=== PATIENT | male | born 1955 | race Caucasian/White ===

== ENCOUNTER 2016-11-20 11:28 | Inpatient (IN) | payer OTHER ==
[~2016-11-20] VITALS: Ht 170.2 cm; Wt 60.0 kg
[~2016-11-20 11:28] MED LIST: ETOMIDATE 20 MG INJ ONE
[2016-11-20] MEDS ORDERED: SUCCINYLCHOLINE CHLORIDE 100 MG/5 ML SYG IV STA (11:33)
[2016-11-20] MEDS ORDERED: ETOMIDATE 20 MG INJ IV STA (11:33)
[2016-11-20] MEDS ORDERED: PROPOFOL 100 ML IV STA (11:33)
[2016-11-20 11:45] VITALS: Ht 170.2 cm; Wt 60.0 kg
[2016-11-20 11:58] LABS: ABNORMAL IP MESSAGE 1; BASOPHIL # 0.1 10^3/ul (0.0-0.1); BASOPHILS % 0.5 % (0.0-2.0); EOSINOPHILS # 0.7 10^3/ul (0.0-0.5); HEMATOCRIT 36.4 % (42.0-52.0); HEMOGLOBIN 11.4 g/dl (14.0-18.0); LYMPHOCYTES # 5.8 10^3/ul (0.8-2.9); MEAN CORPUSCULAR HEMOGLOBIN 29.1 pg (29.0-33.0); MEAN CORPUSCULAR HGB CONC 31.3 g/dl (32.0-37.0); MEAN CORPUSCULAR VOLUME 92.9 fl (82.0-101.0); MEAN PLATELET VOLUME 10.9 fl (7.4-10.4); MONOCYTE # 1.2 10^3/ul (0.3-0.9); MONOCYTES % 6.9 % (0.0-11.0); NEUTROPHIL # 9.5 10^3/ul (1.6-7.5); NEUTROPHILS % 54.3 % (39.0-77.0); PLATELET COUNT 237 10^3/UL (140-415); POSITIVE DIFF @See below; RED BLOOD COUNT 3.92 10^6/ul (4.70-6.10); RED CELL DISTRIBUTION WIDTH 14.6 % (11.5-14.5); WHITE BLOOD COUNT 17.5 10^3/ul (4.8-10.8)
[2016-11-20] MEDS ORDERED: SOD CHLORIDE 0.9% 100 ML ONE (11:58)
[2016-11-20] MEDS ORDERED: IOHEXOL 300MG/ML 150 ML BTL ONE (11:58)
[2016-11-20] MEDS ORDERED: HYDROmorphONE 1 MG/ML SYG IV ONE (12:00)
[2016-11-20 12:15] LABS: ALBUMIN 3.2 g/dl (3.3-4.9); ALBUMIN/GLOBULIN RATIO 0.94; BILIRUBIN,INDIRECT 0.2 mg/dl (0-1.1); BILIRUBIN,TOTAL 0.2 mg/dl (0.2-1.3); CALCIUM 8.7 mg/dl (8.4-10.2); CREATININE 2.53 mg/dl (0.61-1.24); POTASSIUM 3.8 mmol/L (3.5-5.1); TOTAL PROTEIN 6.6 g/dl (6.1-8.1)
[2016-11-20 12:16] LABS: PARTIAL THROMBOPLASTIN TIME 29.4 Sec (25.0-35.0); PT RATIO 1.2
[2016-11-20] MEDS ORDERED: CEFEPIME 2GM/50 ML (PMX) 50 ML IVPB STA (12:20)
[2016-11-20] MEDS ORDERED: SODIUM CHLORIDE 0.9% 1L BAG IV* STA (12:20)
[2016-11-20 12:22] LABS: PROTIME 15.7 Sec (12.2-14.2)
[2016-11-20 12:23] LABS: INR 1.24
[2016-11-20 12:27] LABS: TROPONIN-I 0.074 ng/ml (0.00-0.12)
[2016-11-20] MEDS ORDERED: VANCOMYCIN 1 GM (PMX) 250 ML IVPB ONE (12:30)
--- NOTE | 2016-11-20 12:37 | RADRPT ---
PROCEDURE: CT head without intravenous contrast CLINICAL INDICATION: Sepsis. COMPARISON: None relevant listed. TECHNIQUE: Axial CT images from skull base to vertex with coronal and sagittal reformats. DOSE: The estimated administered radiation dose was CTDI vol = 82 mGy. DLP = 990 mGy-cm. One or mor e of the following dose reduction techniques were used: automated exposure control, adjustment of th e mA and/or kV according to patient size, or use of iterative reconstruction. FINDINGS: Limitations: Motion degrades image quality. Parenchyma: No acute hemorrhage, large territorial infarction, or mass. Moderate amount of periventr icular and subcortical white matter hypodensity, a nonspecific finding often associated with chronic microangiopathy. Ventricles: No ventriculomegaly or ventricular effacement. Extra-axial spaces: No herniation or midline shift. Paranasal sinuses: Clear. Mastoids and middle ears: Clear. Visualized orbits: Normal. Vessels: Mild calcified atherosclerotic arterial plaque. Bones: Normal. Extracranial soft tissues: Normal. Additional comment: None. IMPRESSION: 1. No acute hemorrhage or large territorial infarction. 2. Moderate white matter changes, a nonspecific finding often associated with chronic microangiopat hy. RPTAT: PP Physician Lilibeth Date Time Electronically viewed and signed by Physician Lilibeth on 11/20/2016 12:37 LG/
[2016-11-20] MEDS ORDERED: TACR1CAP PO (12:39)
[2016-11-20] MEDS ORDERED: MIDAZOLAM (DRIP) 50 mg/50 mL 50 ML IV STA (12:39)
[2016-11-20] MEDS ORDERED: TACR5CAP PO (12:39)
[2016-11-20] MEDS ORDERED: PANT40TA4 PO (12:40)
[2016-11-20] MEDS ORDERED: ESOM20CA PO (12:40)
--- NOTE | 2016-11-20 12:46 | RADRPT ---
PROCEDURE: XR Chest. CLINICAL INDICATION: Sepsis. TECHNIQUE: Single frontal view. COMPARISON: None. FINDINGS: The endotracheal tube is in satisfactory position with the tip 5 cm above the stephen. The lungs are clear. The heart size is normal. There is calcification in the aorta consistent with atherosclerosis. There is no pleural effusion. There is no pneumothorax. IMPRESSION: 1. Endotracheal tube in satisfactory position. 2. Clear lungs. 3. Atherosclerosis. RPTAT: QQ .Thomas Cleaning MD, MD Date Time Electronically viewed and signed by .Thomas Cleaning MD, MD on 11/20/2016 12:45 .R/
[2016-11-20] MEDS ORDERED: HEPARIN 25000 UNITS/250 ML 250 ML IV STA (12:50)
[2016-11-20] MEDS ORDERED: NORepinephrine 8MG/250 ML (PMX 250 ML IV STA (12:56)
--- NOTE | 2016-11-20 12:58 | RADRPT ---
PROCEDURE: CT Abdomen and Pelvis with contrast. CLINICAL INDICATION: Abdomen and pelvis pain. Syncope. TECHNIQUE: CT scan of the abdomen and pelvis with contrast was performed. The patient was scanned following the uncomplicated intravenous administration of 100 cc of Omnipaque-300. Coronal and sag ittal reformatted images were obtained from the axial source images. Images were reviewed on a high- resolution PACS workstation. Total exam DLP is 1116.41 mGy-cm. CTDIvol is 18.82 mGy. One or more of the following dose reduction techniques were used: Automated exposure control, adjustment of the mA and/or kV according to patient size, use of iterative reconstruction technique. COMPARISON: None. FINDINGS: There is mild atelectasis at the left lung base posteriorly. The lung bases are otherwise normal. Th ere is very small left pleural effusion. There is no right pleural effusion and there is no pericard ial effusion. The heart is mildly enlarged. There is a filling defect in the right lower lobe pulmon josie artery consistent with pulmonary artery embolism. Main pulmonary arteries are not included on th e images. The liver is normal in size and attenuation. There is no focal hepatic lesion. The gallbladder is not visualized indicating it may be surgically absent. The bile ducts are normal. The spleen is normal in size. There is no focal splenic lesion. Both adrenals are normal with no enlargement or mass. The pancreas is unremarkable with no mass or evidence of pancreatitis. Both kidneys demonstrate normal contrast enhancement. There is mild bilateral hydronephrosis. A ri ght ureteral stent is present in satisfactory position. There is abnormal course of the distal right ureter related to prior surgery. The abdominal aorta is not dilated. There is calcification in the aorta consistent with atherosclero sis. There is no retroperitoneal lymphadenopathy or mass. There is no pelvic lymphadenopathy or mass. There is a New catheter in the urinary bladder. The periappendiceal region is unremarkable with no evidence of appendicitis. There has been prior bowel surgery in the right lower quadrant. The bowel and mesentery are otherwis e normal. The nasogastric tube is present in satisfactory position with the tip in the stomach. There is no free fluid. There is gas in the abdominal wall, inguinal regions, and scrotum, likely re lated to recent laparoscopy. There are mild degenerative changes of the spine. There is no fracture or lytic lesion. IMPRESSION: 1. Mild atelectasis at the left lung base posteriorly and small left pleural effusion. 2. Mild cardiomegaly. 3. Right-sided pulmonary artery embolism. 4. Gallbladder not visualized indicating it may be surgically absent. 5. Mild bilateral hydronephrosis. 6. Right ureteral stent. 7. Prior right ureter surgery. 8. Atherosclerosis. 9. New catheter in the bladder. 10. Prior bowel surgery in the right lower quadrant. 11. Nasogastric tube in satisfactory position. 12. Recent laparoscopy with gas in the abdominal wall, inguinal regions, and scrotum. 30. Mild degenerative changes of the spine. RPTAT: QQ .Thomas Cleaning MD, MD Date Time Electronically viewed and signed by .Thomas Cleaning MD, on 11/20/2016 12:57 .R/
[2016-11-20] MEDS ORDERED: HEPARIN 1000 UNITS/ML 10 ML INJ IV STA (13:03)
[2016-11-20] MEDS ORDERED: EPINEPHrine 0.1 MG/ML SYG ONE ×2 (13:14→16:40)
--- NOTE | 2016-11-20 13:46 | ERA ---
ER Documentation Chief Complaint Date/Time DATE: 11/20/16 TIME: 13:36 Chief Complaint BIB [facility] FOR EVAL OF ALOC. LABORED BREATHING. 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 Please note the history and physical exam is limited secondary to the patient's altered mental status at this time. The patient was brought in by ambulance. 30 minutes prior to arrival he was sitting at the table and became acutely altered per family. He did have a recent kidney procedure done 4 days ago. He has had a liver transplant at [facility] in the past. Upon review of old medical records this is the patient's first visit to the emergency department. ROS All systems reviewed and are negative except as per history of present illness. Medications Home Meds Reported Medications Esomeprazole Mag Trihydrate (Nexium) 20 Mg Capsule.dr, 20 MG PO DAILY, #30 CAP 11/20/16 Pantoprazole* (Pantoprazole*) 40 Mg Tablet.dr, 40 MG PO AC BREAKFAST, TAB 11/20/16 Pantoprazole* (Pantoprazole*) 40 Mg Tablet.dr, 40 MG PO AC BREAKFAST, TAB 11/20/16 Tacrolimus* (Tacrolimus*) 5 Mg Capsule, 5 MG PO Q12, CAP 11/20/16 Tacrolimus* (Tacrolimus*) 1 Mg Capsule, 1 MG PO Q12, CAP 11/20/16 Allergies Allergies: Coded Allergies: Unable to Assess (Verified Allergy, Severe, 11/20/16) PMhx/Soc Positive for kidney disease and liver transplant Medical and Surgical Hx: Unable to obtain Smoking Status: Unknown if ever smoked FmHx Unable to obtain Physical Exam Vitals Vital Signs Date Time Temp Pulse Resp B/P Pulse Ox O2 Delivery O2 Flow Rate FiO2 11/20/16 11:45 97.0 105 8 109/52 97 11/20/16 11:44 Bag Valve Mask 15 Physical Exam Const: Severe distress Head: Atraumatic Eyes: Sided gaze preference ENT: Not protecting airway at this time Neck: Full range of motion..~ No meningismus. Resp: Tachypnea Cardio: Regular rate and rhythm, no murmurs Abd: Soft, non tender, non distended. Normal bowel sounds Skin: No petechiae or rashes Back: No midline or flank tenderness Ext: No cyanosis, or edema Neur: Eyes open but there is a left-sided gaze preference, patient does extend toes bilaterally to pain, no following commands Result Diagram: 11/20/16 1140 11/20/16 1140 Results 24 hrs Laboratory Tests Test 11/20/16 11:40 White Blood Count 17.510^3/ul Red Blood Count 3.9210^6/ul Hemoglobin 11.4g/dl Hematocrit 36.4% Mean Corpuscular Volume 92.9fl Mean Corpuscular Hemoglobin 29.1pg Mean Corpuscular Hemoglobin Concent 31.3g/dl Red Cell Distribution Width 14.6% Platelet Count 18605^3/UL Mean Platelet Volume 10.9fl Neutrophils % 54.3% Lymphocytes % 33.0% Monocytes % 6.9% Eosinophils % 4.0% Basophils % 0.5% Nucleated Red Blood Cells % 0.0/100WBC Neutrophils # 9.510^3/ul Lymphocytes # 5.810^3/ul Monocytes # 1.210^3/ul Eosinophils # 0.710^3/ul Basophils # 0.110^3/ul Nucleated Red Blood Cells # 0.010^3/ul Prothrombin Time 15.7Sec Prothrombin Time Ratio 1.2 INR International Normalized Ratio 1.24 Activated Partial Thromboplast Time 29.4Sec Sodium Level 142mmol/L Potassium Level 3.8mmol/L Chloride Level 117mmol/L Carbon Dioxide Level 12mmol/L Anion Gap 17 Blood Urea Nitrogen 27mg/dl Creatinine 2.53mg/dl Glucose Level 254mg/dl Lactic Acid Level 6.5mmol/L Calcium Level 8.7mg/dl Total Bilirubin 0.2mg/dl Direct Bilirubin 0.00mg/dl Indirect Bilirubin 0.2mg/dl Aspartate Amino Transf (AST/SGOT) 20IU/L Alanine Aminotransferase (ALT/SGPT) 31IU/L Alkaline Phosphatase 82IU/L Ammonia 34umol/l Troponin I 0.074ng/ml Total Protein 6.6g/dl Albumin 3.2g/dl Globulin 3.40g/dl Albumin/Globulin Ratio 0.94 Current Medications Medications (Trade) Dose Ordered Sig/Lin Route PRN Reason Start Time Stop Time Status Last Admin Dose Admin Succinylcholine Chloride (Anectine Syringe) 150 mg ONCE STAT IV 11/20/16 11:33 11/20/16 11:35 DC Etomidate (Amidate) 20 mg ONCE STAT IV 11/20/16 11:33 11/20/16 11:35 DC Hydromorphone HCl 1 mg 1 mg ONCE ONCE IV 11/20/16 12:00 11/20/16 12:01 DC Propofol (Diprivan) 100 ml @ 0 mls/hr ONCE STAT IV 11/20/16 11:33 11/20/16 12:39 DC IV Flush 10 ml 10 ml STK-MED ONCE .ROUTE 11/20/16 11:58 11/20/16 11:59 DC 11/20/16 12:25 Sodium Chloride (NS) 100 ml @ ud STK-MED ONCE .ROUTE 11/20/16 11:58 11/20/16 11:59 DC 11/20/16 12:26 Iohexol (Omnipaque 300mg/ ml) 150 ml STK-MED ONCE .ROUTE 11/20/16 11:58 11/20/16 11:59 DC 11/20/16 12:26 Sodium Chloride 1860 ml 1,860 ml BOLUS OVER 2 HOURS STAT IV* 11/20/16 12:20 11/20/16 12:21 DC 11/20/16 12:51 Cefepime HCl 50 ml @ 100 mls/hr ONCE STAT IVPB 11/20/16 12:20 11/20/16 12:49 DC Vancomycin HCl 250 ml @ 125 mls/hr ONCE ONCE IVPB 11/20/16 12:30 11/20/16 14:29 Midazolam HCl 50 ml @ 3 mls/hr ONCE STAT IV 11/20/16 12:39 11/21/16 05:18 11/20/16 12:52 Heparin Sodium (Porcine) 250 ml @ 0 mls/hr ONCE STAT IV 11/20/16 12:50 11/20/16 12:52 DC Norepinephrine (Levophed) 250 ml @ 7.5 mls/hr ONCE STAT IV 11/20/16 12:56 11/21/16 22:15 Heparin Sodium (Porcine) (Heparin (1000 Units/ml)) 4,800 unit ONCE STAT IV 11/20/16 13:03 11/20/16 13:04 DC Epinephrine 1 mg STK-MED ONCE .ROUTE 11/20/16 13:14 11/20/16 13:15 DC Alteplase, Recombinant (Activase) 100 mg ONCE ONCE IV* 11/20/16 14:00 11/20/16 14:01 Procedures/MDM EKG #1 read by me: Rate/Rhythm: Wide-complex irregular rhythm Intervals: Wide QRS complex Impression: Wide complex irregular tachycardia without signs of STEMI EKG #2 read by me: Rate/Rhythm: Sinus rhythm at a regular rate Intervals: Normal Impression: Sinus rhythm with ST elevations in leads I and aVL with reciprocal depressions Chest X-ray 1V Interpreted by me: Soft Tissue: No acute abnormalities Bones: No acute abnormalities Mediastinum/Cardiac Silhouette/Lungs: ET tube at the level of the clavicles , will be advanced 2 cm by respiratory therapy but no obvious pneumonia or pneumothorax Central Line Placement by me: Patient consented, sterilely draped, full prep, gown, glove, mask, time out performed. Anesthesia: 1% lidocaine locally Location: Right femoral Device: Multiple lumen Technique: Seldinger technique. Secured with suture. Results: Venous return from all ports with easy saline flush. No complications. Guide wire retrieved and disposed of. ED Ultrasound: Central line placed by me using concurrent ultrasound guidance. Real time image archived in the medical record confirms vascular anatomy. Endotracheal Intubation by me: Pre assessment performed. Pre-oxygenation performed with 100% oxygen RSI: Performed w/o complication or hypoxic events. Medications as ordered. Blade: MAC 4 Glidescope ET Tube: 7.5 cm Depth: 21 cm at the lip Intubation confirmed by colorimetric CO2, equal breath sounds, quiet over the stomach. Limited transthoracic echo performed by me Indication: Hypotension Pericardium: [No effusion] Cardiac: Poor left ventricular contractility, large right ventricle consistent with pulmonary embolism Image archived in the medical record. CT brain shows no bleed per radiology. CT abdomen and pelvis shows no bleeding but does show large pulmonary embolism. Patient is a 61-year-old male with liver transplant who presents with altered mental status. The patient was found to have a large pulmonary embolism on CT abdomen and pelvis with contrast. Given his renal failure I did not want to go back and rescan his chest given the risk of renal failure. The patient was given a 30 mm/kg fluid bolus as well as vancomycin and cefepime. The patient however has no sign of infection at this time and I doubt true sepsis. The patient likely is hypotensive because of a large pulmonary embolism as the ultrasound did show a large right ventricle. Therefore the patient was given a heparin bolus with drip and then because he was hypotensive started on TPA 100 mg over 2 hours. The patient is critically ill and will need admission to [facility]. We have called the [facility] transfer center to transfer for higher level of care as he had his liver transplant done at [facility] and we do not have a transplant team here at [facility]. Patient is a poor prognosis given his age and comorbidities. He has renal failure with a creatinine of 2.53 but the family says that he has had kidney issues in the past. The patient's second EKG showed a STEMI and I called a code STEMI and then spoke with Dr. 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 We discussed that this is most likely ST elevations from large pulmonary embolism and right-sided heart strain and not truly from a coronary occlusion. 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 The patient will be receiving TPA however. Critical Care: Time: 55 minutes excluding all billable procedures. Treatments/Evaluations: Close monitoring and treatment of unstable vital signs, cardiorespiratory, and neurologic status, while maintaining tight balance of fluid, respiratory, and cardiac interventions. Departure Diagnosis: Primary Impression: Pulmonary embolism Qualified Code: I26.02 - Acute saddle pulmonary embolism with acute cor pulmonale Additional Impressions: Acute renal failure Qualified Code: N17.9 - Acute renal failure, unspecified acute renal failure type Altered level of consciousness Respiratory failure Qualified Code: J96.00 - Acute respiratory failure, unspecified whether with hypoxia or hypercapnia Anemia Qualified Code: D64.9 - Anemia, unspecified type Hyperglycemia Condition: Critical LISSETTE CAMPBELL MD Nov 20, 2016 13:46
[2016-11-20] MEDS ORDERED: ALTEPLASE 100 MG INJ IV* ONE (14:00)
--- NOTE | 2016-11-20 15:23 | RADRPT ---
Echocardiogram Report Patient Name: FAWN MATTHEWS Gender: Male Date: 1955 Study Date: 20-Nov-2016 Rivet Driver: Wily Scanlon [facility] Location: [facility] Ref. Physician: LISSETTE CAMPBELL Quality: Adequate Procedures: Transthoracic echocardiogram with complete 2D, M-Mode, and doppler examination. Indications: Pulmonary embolism. 2D/M Mode Doppler Measurement Value Normal Ranges Measurement Value Normal Ranges LVIDd 2D 3.6 3.5 - 5.6 cm AV Peak Srinivas 0.9 m/sec LVIDs 2D 3.2 2.1 - 4.1 cm AV Peak PG 3.0 mmHg FS 2D 12.4 % LVOT Peak Srinivas 0.4 m/sec LVPWd 2D 1.2 0.6 - 1.1 cm LVOT Peak PG 1.0 mmHg IVSd 2D 1.2 0.6 - 1.1 cm MV E Peak Srinivas 0.7 m/sec IVS/LVPW 2D 1.0 MV Decel Time 102 msec AoR Diam 2D 2.6 2.0 - 3.7 cm MR Peak PG 29.0 mmHg LA/Ao 2D 1 0 - 1 MR Peak Srinivas 2.7 m/sec EDV 2D 47.4 cm3 TR Peak Srinivas 2.2 m/sec ESV 2D 31.9 cm3 TR Peak PG 19.0 mmHg LA Dimen 2D 3.1 2.3 - 4.0 cm RVSP 27.0 mmHg Findings Left Ventricle: Normal left ventricular cavity size. Mild concentric left ventricular hypertrophy. Severe global left ventricular systolic dysfunction. Ejection fraction is visually estimated at 15 %. Abnormal Diastolic Function. Right Ventricle: Moderate enlargement of right ventricle. Moderate right ventricular hypokinesis. Left Atrium: The left atrium is normal in size. Left atrial thrombus seen. Right Atrium: The right atrium is normal in size. Mitral Valve: Mild mitral leaflet calcification. Mild mitral annular calcification. Mild mitral valve regurgitation. Echogenic structure is seen on the mitral valve consistent with vegetation. Aortic Valve: No significant aortic stenosis or insufficiency. Aortic sclerosis without stenosis. Echogenic structure seen on aortic valve consistent with vegetation. Tricuspid Valve: Normal appearance of the tricuspid valve. Estimated peak PA systolic pressure 27 mmHg. There is mild tricuspid regurgitation. Echogenic structure is seen on the tricuspid valve consistent with vegetation. Pericardium: Normal pericardium with no significant pericardial effusion. Aorta: Normal aortic root. IVC: Normal size and no respiratory collapse consistent with elevated right atrial pressure. Recommendations: Suggest CHELA to evaluate for possible vegetation if clinically indicated. Conclusions 1.Normal left ventricular cavity size. Mild concentric left ventricular hypertrophy. Severe global left ventricular systolic dysfunction. Ejection fraction is visually estimated at 15 %. Abnormal Diastolic Function. 2.Moderate enlargement of right ventricle. Moderate right ventricular hypokinesis. 3.The right atrium is normal in size. 4.The left atrium is normal in size. Left atrial thrombus seen. 5.Mild mitral leaflet calcification. Mild mitral annular calcification. Mild mitral valve regurgitation. Echogenic structure is seen on the mitral valve consistent with vegetation. 6.No significant aortic stenosis or insufficiency. Aortic sclerosis without stenosis. Echogenic structure seen on aortic valve consistent with vegetation. 7.Normal appearance of the tricuspid valve. Estimated peak PA systolic pressure 27 mmHg. There is mild tricuspid regurgitation. Echogenic structure is seen on the tricuspid valve consistent with vegetation. 8.THERE IS ECHOGENIC STRUCTURE SEEN IN THE LA AND MITRAL VALVE, LARGE IN SIZE GOING IN TO LVOT TO AV. WELL SAME STRUCTURE SEEN IN TO RA TO TV. LIKELY THROMBUS VS VEGETATION, CLINICAL CORRELATION NEEDED. Electronically Signed By: Heather Morse 20-Nov-2016 15:21:53 -0700 Patient Name: FAWN MATTHEWS Study Date: 20-Nov-2016 [id number]
[2016-11-20] MEDS ORDERED: SOD CHLORIDE 0.9% 1,000 ML IV STA ×2 (16:07→20:34)
[2016-11-20] MEDS ORDERED: EPINEPHrine 4 MG in DEXTROSE 5% 246 ML IV STA ×2 (16:18→18:56)
--- NOTE | 2016-11-20 16:18 | RADRPT ---
PROCEDURE: Chest xray. CLINICAL INDICATION: Hypoxia. TECHNIQUE: A portable supine AP view of the chest was obtained. COMPARISON: 11/20/2016 12:33 p.m. FINDINGS: The endotracheal tube tip is approximately 7 cm above the level of the stephen. The nasogastric tube is seen coursing below the diaphragm with its tip excluded from the field of view. The cardiomediast inal silhouette is within normal limits. Atherosclerotic calcifications are again noted in the aorta . The lungs are well expanded and show normal vascularity. No focal opacity, pleural effusion, or pn eumothorax is identified. The skeletal structures and soft tissues are unremarkable. IMPRESSION: Endotracheal tube is positioned slightly high, consider advancing 2 cm for more optimal positioning. Otherwise, no acute intrathoracic abnormality. RPTAT:PP .Niki Veliz MD, Date Time Electronically viewed and signed by .Niki Veliz MD, on 11/20/2016 16:18 .K/
[2016-11-20] MEDS ORDERED: VECURONIUM 10 MG VIAL IV ONE (16:30)
--- NOTE | 2016-11-20 16:33 | RADRPT ---
PROCEDURE: XR Chest. CLINICAL INDICATION: Check endotracheal tube position. TECHNIQUE: Single frontal view. COMPARISON: Prior study done earlier the same day. FINDINGS: The endotracheal tube is now 6 cm above the stephen. This should be advanced approximately 3 cm. A na sogastric tube tip is in the stomach. The lungs are clear. The heart size is normal. There is calcification in the aorta consistent with atherosclerosis. There is no pleural effusion. There is no pneumothorax. IMPRESSION: 1. The endotracheal tube should be advanced approximately 3 cm. 2. No other change from the prior study done earlier the same day. RPTAT: QQ .Thomas Cleaning MD, MD Date Time Electronically viewed and signed by .Thomas Cleaning MD, on 11/20/2016 16:33 .R/
[2016-11-20] MEDS ORDERED: VASOPRESSIN 60 UNIT in SOD CHLORIDE 0.9% 57 ML IV STA (16:47)
[2016-11-20] MEDS ORDERED: PHENYLephrine 20MG IN 250 ML 250 ML IV STA (17:31)
[2016-11-20] MEDS ORDERED: HYDROCORTISONE 100 MG INJ IV ONE (18:00)
[2016-11-20 19:09] LABS: ABNORMAL IP MESSAGE 1; HEMATOCRIT 41.1 % (42.0-52.0); HEMOGLOBIN 12.4 g/dl (14.0-18.0); MEAN CORPUSCULAR HEMOGLOBIN 30.4 pg (29.0-33.0); MEAN CORPUSCULAR HGB CONC 30.2 g/dl (32.0-37.0); MEAN CORPUSCULAR VOLUME 100.7 fl (82.0-101.0); NUCLEATED RED BLOOD CELLS% 0.1 /100WBC (0.0-0.0); PLATELET COUNT 162 10^3/UL (140-415); POSITIVE DIFF @See below; RED BLOOD COUNT 4.08 10^6/ul (4.70-6.10); RED CELL DISTRIBUTION WIDTH 14.2 % (11.5-14.5); WHITE BLOOD COUNT 25.6 10^3/ul (4.8-10.8)
[2016-11-20 19:26] LABS: ALBUMIN 2.7 g/dl (3.3-4.9); ALBUMIN/GLOBULIN RATIO 0.87; BILIRUBIN,INDIRECT 0.4 mg/dl (0-1.1); BILIRUBIN,TOTAL 0.4 mg/dl (0.2-1.3); CALCIUM 7.6 mg/dl (8.4-10.2); CREATININE 2.97 mg/dl (0.61-1.24); POTASSIUM 4.7 mmol/L (3.5-5.1); TOTAL PROTEIN 5.8 g/dl (6.1-8.1)
[2016-11-20 19:38] LABS: BASOPHILS % (M) 1 % (0-2); EOSINOPHILS % (M) 1 % (0-7); MONOCYTES % (M) 8 % (0-11); PLATELET ESTIMATE NORMAL
[2016-11-20] MEDS ORDERED: SODIUM BICARBONATE (IV ADD) 150 MEQ in DEXTROSE 5% 850 ML IV STA (20:21)
[2016-11-20] MEDS ORDERED: SOD CHLORIDE 0.9% 1,000 ML IV SCH (20:53)
[2016-11-20] MEDS ORDERED: PANTOPRAZOLE 40 MG INJ IV SCH (21:00)
[2016-11-20] MEDS ORDERED: INSULIN ASPART [NOVOLOG] 3 ML PEN SC SCH (21:00)
[2016-11-20] MEDS ORDERED: ACETAMINOPHEN 650 MG SUPP PR PRN (21:00)
[2016-11-20] MEDS ORDERED: ONDANSETRON 4 MG INJ IV PRN (21:00)
--- NOTE | 2016-11-20 21:08 | HP ---
Date/Time of Note Date/Time of Note DATE: 11/20/16 TIME: 20:44 Assessment/Plan VTE Prophylaxis VTE Prophylaxis Intervention: heparin Lines/Catheters IV C[facility]ter Type (from [facility] Central Line Central line still needed: Yes Urinary Cath still in place: Yes Reason Cath still needed: other (indicate) Assessment/Plan Chief Complaint/Hosp Course This is a 61-year-old male being admitted to the ICU floor for: Assessment: #1. Ventilatory dependent respiratory failure #2. Cardiac arrest #3.acute pulmonary embolism #4 cardiogenic shock #5.Lactic acidosis #6 Acute encepholapathy #7 Thrombus versus vegetation seen on echocardiogram #8 Renal failure, acute versus chronic #9 Hepatitis C s/p Liver transplant Plan: Intubated on ventilatory support, continue vent management Maintain pressor support, currently on 4 pressors. Initiate bicarb drip Received TPA and now currently on heparin drip Serial troponins, lactate, ABGs, cmp, cbc, magnesium, coags, cardiac enzymes, monitor for any signs of infection/fevers. Once patient is stabilized will need CHELA to further evaluate thrombus versus vegetation in the heart. Await adamson culture results Continuous hemodynamic monitoring including blood pressure and pulse oximetry. Monitor urine output. Monitor NG tube output Pulmonary, cardiology, and neurology consultation Code Status: DNR Further treatment strategy will be implemented as per the clinical course. Extensive discussion had with the and daughter at the bedside. Patient's condition explained in detail and it was explained that patient is critical and has a poor prognosis. would like us to continue current management, but in the event he goes into an arrest she does not want us to be more aggressive. Code status therefore changed to DNR. Problems: HPI/ROS Admit Date/Time Admit Date/Time Hx of Present Illness Chief complaint: Unresponsive, cardiac arrest Patient is a 61-year-old male with a liver transplant who presents with altered mental status. Please note the history and physical exam is limited secondary to the patient's altered mental status at this time. The patient was brought in by ambulance. 30 minutes prior to arrival he was sitting at the table and became acutely altered per family. He did have a recent kidney procedure done 4 days ago. He has had a liver transplant at [facility] in the past. Upon speaking with the she states that the patient was recently at [facility] after having a stent placed in his kidney. Patient had gone home and he was in his usual state of health until about yesterday were he was noticed to be more tired and sleeping a lot more. Then today he was sitting and eating at the table when the all of a sudden noticed that he went unconscious against the chair. She tried to awaken him but he did not wake up. She then started CPR on him. She also was able to check a blood pressure at that time his blood pressure was normal according to the at around greater than 100 systolic. She continued CPR until the ambulance arrived which was approximately 20-30 minutes according to the . During her attempted CPR she did notice that he did have an episode where he was trying to wake up however after that he remained unconscious. CT of the chest in the ED revealed: Pulmonary embolism of the right pulmonary artery. Echocardiogram showed an ejection fraction of 15% and echogenic structure seen in the LAD and mitral valve, large in size going into the LVOT to AV. As well as some structure seen into the RA to the TV. Likely thrombus versus vegetation Upon my examination at the bedside at approximately 7:45pm - 8:00 PM patient was obtunded and intubated. He was on IV sedation and given paralytic. He also was on 4 pressors for blood pressure support. Patient's neurological exam showed that his pupils were fixed bilaterally and nonreactive to light. Patient 's lactate was noted to be 5.6. Soon after patient was initiated on bicarb drip. Allergies: NKDA Medications: See MAR ROS Subjective hx not possible: pt non-verbal (intubated, obtunded), pt critical status PMH/Family/Social Past Medical History bladder ca, hepatitis C, renal failure? Past Surgical History liver transplant, ureteral stent, history of hepatic clot embolectomy Family History Significant Family History: no pertinent family hx Social History Alcohol Use: none Smoking Status: Unknown if ever smoked Drug Use: none Exam/Review of Systems Vital Signs Vitals Vital Signs Date Time Temp Pulse Resp B/P Pulse Ox O2 Delivery O2 Flow Rate FiO2 11/20/16 20:31 79 18 58/47 Mechanical Ventilator 11/20/16 20:00 68 11/20/16 17:54 100 11/20/16 17:53 96.4 11/20/16 11:44 15 Exam Exam General: Patient is obtunded and intubated and connected to ventilator. HEENT: Normocephalic atraumatic, pupils fixed and nonreactive to light bilaterally. ET tube in place, NG tube in place Neck: Supple Lungs: Clear to auscultation bilaterally Heart: Regular rhythm and rate. Abdomen: Soft , nondistended,, bowel sounds are present, NG tube to suction in place with approximately 20 cc of dark fluid Extremities: Normal to inspection, no edema no cyanosis Neurologic: Obtunded and intubated. Pupils fixed and nonreactive to light bilateral. Currently on sedation. Skin: IV lines and central line in place right femoral Additional Comments PROCEDURE: CT Abdomen and Pelvis with contrast. CLINICAL INDICATION: Abdomen and pelvis pain. Syncope. TECHNIQUE: CT scan of the abdomen and pelvis with contrast was performed. The patient was scanned following the uncomplicated intravenous administration of 100 cc of Omnipaque-300. Coronal and sagittal reformatted images were obtained from the axial source images. Images were reviewed on a high- resolution PACS workstation. Total exam DLP is 1116.41 mGy-cm. CTDIvol is 18.82 mGy. One or more of the following dose reduction techniques were used: Automated exposure control, adjustment of the mA and/or kV according to patient size, use of iterative reconstruction technique. COMPARISON: None. FINDINGS: There is mild atelectasis at the left lung base posteriorly. The lung bases are otherwise normal. There is very small left pleural effusion. There is no right pleural effusion and there is no pericardial effusion. The heart is mildly enlarged. There is a filling defect in the right lower lobe pulmonary artery consistent with pulmonary artery embolism. Main pulmonary arteries are not included on the images. The liver is normal in size and attenuation. There is no focal hepatic lesion. The gallbladder is not visualized indicating it may be surgically absent. The bile ducts are normal. The spleen is normal in size. There is no focal splenic lesion. Both adrenals are normal with no enlargement or mass. The pancreas is unremarkable with no mass or evidence of pancreatitis. Both kidneys demonstrate normal contrast enhancement. There is mild bilateral hydronephrosis. A right ureteral stent is present in satisfactory position. There is abnormal course of the distal right ureter related to prior surgery. The abdominal aorta is not dilated. There is calcification in the aorta consistent with atherosclerosis. There is no retroperitoneal lymphadenopathy or mass. There is no pelvic lymphadenopathy or mass. There is a New catheter in the urinary bladder. The periappendiceal region is unremarkable with no evidence of appendicitis. There has been prior bowel surgery in the right lower quadrant. The bowel and mesentery are otherwise normal. The nasogastric tube is present in satisfactory position with the tip in the stomach. There is no free fluid. There is gas in the abdominal wall, inguinal regions, and scrotum, likely related to recent laparoscopy. There are mild degenerative changes of the spine. There is no fracture or lytic lesion. IMPRESSION: 1. Mild atelectasis at the left lung base posteriorly and small left pleural effusion. 2. Mild cardiomegaly. 3. Right-sided pulmonary artery embolism. 4. Gallbladder not visualized indicating it may be surgically absent. 5. Mild bilateral hydronephrosis. 6. Right ureteral stent. 7. Prior right ureter surgery. 8. Atherosclerosis. 9. New catheter in the bladder. 10. Prior bowel surgery in the right lower quadrant. 11. Nasogastric tube in satisfactory position. 12. Recent laparoscopy with gas in the abdominal wall, inguinal regions, and scrotum. 30. Mild degenerative changes of the spine. RPTAT: QQ .Thomas Cleaning MD, MD Date Time Electronically viewed and signed by .Thomas Cleaning MD, MD on 11/20/2016 12:57 .R/ CC: LISSETTE CAMPBELL MD PROCEDURE: CT head without intravenous contrast CLINICAL INDICATION: Sepsis. COMPARISON: None relevant listed. TECHNIQUE: Axial CT images from skull base to vertex with coronal and sagittal reformats. DOSE: The estimated administered radiation dose was CTDI vol = 82 mGy. DLP = 990 mGy-cm. One or more of the following dose reduction techniques were used: automated exposure control, adjustment of the mA and/or kV according to patient size, or use of iterative reconstruction. FINDINGS: Limitations: Motion degrades image quality. Parenchyma: No acute hemorrhage, large territorial infarction, or mass. Moderate amount of periventricular and subcortical white matter hypodensity, a nonspecific finding often associated with chronic microangiopathy. Ventricles: No ventriculomegaly or ventricular effacement. Extra-axial spaces: No herniation or midline shift. Paranasal sinuses: Clear. Mastoids and middle ears: Clear. Visualized orbits: Normal. Vessels: Mild calcified atherosclerotic arterial plaque. Bones: Normal. Extracranial soft tissues: Normal. Additional comment: None. IMPRESSION: 1. No acute hemorrhage or large territorial infarction. 2. Moderate white matter changes, a nonspecific finding often associated with chronic microangiopathy. RPTAT: PP Physician Lilibeth Date Time Electronically viewed and signed by Physician Lilibeth on 11/20/2016 12: 37 LG/ CC: LISSETTE CAMPBELL MD PROCEDURE: XR Chest. CLINICAL INDICATION: Sepsis. TECHNIQUE: Single frontal view. COMPARISON: None. FINDINGS: The endotracheal tube is in satisfactory position with the tip 5 cm above the stephen. The lungs are clear. The heart size is normal. There is calcification in the aorta consistent with atherosclerosis. There is no pleural effusion. There is no pneumothorax. IMPRESSION: 1. Endotracheal tube in satisfactory position. 2. Clear lungs. 3. Atherosclerosis. RPTAT: QQ .Thomas Cleaning MD, Date Time Electronically viewed and signed by .Thomas Cleaning MD, MD on 11/20/2016 12:45 .R/ CC: LISSETTE CAMPBELL MD EKG #1 : Rate/Rhythm: Wide-complex irregular rhythm Intervals: Wide QRS complex Impression: Wide complex irregular tachycardia without signs of STEMI As per ED physician documentation EKG #2 : Rate/Rhythm: Sinus rhythm at a regular rate Intervals: Normal Impression: Sinus rhythm with ST elevations in leads I and aVL with reciprocal depressions As per ED physician documentation Echocardiogram Report Patient Name: FAWN MATTHEWS Gender: Male Date: 1955 Study Date: 20-Nov-2016 Flight Security Specialist: Wily Scanlon [facility] Location: ER-4 Ref. Physician: LISSETTE CAMPBELL Quality: Adequate Procedures: Transthoracic echocardiogram with complete 2D, M-Mode, and doppler examination. Indications: Pulmonary embolism. 2D/M Mode Doppler Measurement Value Normal Ranges Measurement Value Normal Ranges LVIDd 2D 3.6 3.5 - 5.6 cm AV Peak Srinivas 0.9 m/sec LVIDs 2D 3.2 2.1 - 4.1 cm AV Peak PG 3.0 mmHg FS 2D 12.4 % LVOT Peak Srinivas 0.4 m/sec LVPWd 2D 1.2 0.6 - 1.1 cm LVOT Peak PG 1.0 mmHg IVSd 2D 1.2 0.6 - 1.1 cm MV E Peak Srinivas 0.7 m/sec IVS/LVPW 2D 1.0 MV Decel Time 102 msec AoR Diam 2D 2.6 2.0 - 3.7 cm MR Peak PG 29.0 mmHg LA/Ao 2D 1 0 - 1 MR Peak Srinivas 2.7 m/sec EDV 2D 47.4 cm3 TR Peak Srinivas 2.2 m/sec ESV 2D 31.9 cm3 TR Peak PG 19.0 mmHg LA Dimen 2D 3.1 2.3 - 4.0 cm RVSP 27.0 mmHg Findings Left Ventricle: Normal left ventricular cavity size. Mild concentric left ventricular hypertrophy. Severe global left ventricular systolic dysfunction. Ejection fraction is visually estimated at 15 %. Abnormal Diastolic Function. Right Ventricle: Moderate enlargement of right ventricle. Moderate right ventricular hypokinesis. Left Atrium: The left atrium is normal in size. Left atrial thrombus seen. Right Atrium: The right atrium is normal in size. Mitral Valve: Mild mitral leaflet calcification. Mild mitral annular calcification. Mild mitral valve regurgitation. Echogenic structure is seen on the mitral valve consistent with vegetation. Aortic Valve: No significant aortic stenosis or insufficiency. Aortic sclerosis without stenosis. Echogenic structure seen on aortic valve consistent with vegetation. Tricuspid Valve: Normal appearance of the tricuspid valve. Estimated peak PA systolic pressure 27 mmHg. There is mild tricuspid regurgitation. Echogenic structure is seen on the tricuspid valve consistent with vegetation. Pericardium: Normal pericardium with no significant pericardial effusion. Aorta: Normal aortic root. IVC: Normal size and no respiratory collapse consistent with elevated right atrial pressure. Recommendations: Suggest CHELA to evaluate for possible vegetation if clinically indicated. Conclusions 1. Normal left ventricular cavity size. Mild concentric left ventricular hypertrophy. Severe global left ventricular systolic dysfunction. Ejection fraction is visually estimated at 15 %. Abnormal Diastolic Function. 2. Moderate enlargement of right ventricle. Moderate right ventricular hypokinesis. 3. The right atrium is normal in size. 4. The left atrium is normal in size. Left atrial thrombus seen. 5. Mild mitral leaflet calcification. Mild mitral annular calcification. Mild mitral valve regurgitation. Echogenic structure is seen on the mitral valve consistent with vegetation. 6. No significant aortic stenosis or insufficiency. Aortic sclerosis without stenosis. Echogenic structure seen on aortic valve consistent with vegetation. 7. Normal appearance of the tricuspid valve. Estimated peak PA systolic pressure 27 mmHg. There is mild tricuspid regurgitation. Echogenic structure is seen on the tricuspid valve consistent with vegetation. 8. THERE IS ECHOGENIC STRUCTURE SEEN IN THE LA AND MITRAL VALVE, LARGE IN SIZE GOING IN TO LVOT TO AV. WELL SAME STRUCTURE SEEN IN TO RA TO TV. LIKELY THROMBUS VS VEGETATION, CLINICAL CORRELATION NEEDED. Electronically Signed By: Heather Morse 20-Nov-2016 15:21:53 -0700 Patient Name: FAWN MATTHEWS Study Date: 20-Nov-[id number] Labs Result Diagram: 11/20/16190111/20/161901 REG SHARMA Nov 20, 2016 20:55
[2016-11-20] MEDS ORDERED: GLUCAGON 1 MG INJ IM PRN (21:30)
[2016-11-20] MEDS ORDERED: GLUCOSE GEL 15 GRAM TUBE PO PRN ×2 (21:30)
[2016-11-20] MEDS ORDERED: GLUCOSE GEL 15 GRAM TUBE BUCCAL PRN (21:30)
[2016-11-20] MEDS ORDERED: DEXTROSE 50% 50 ML SYRINGE IV PRN ×2 (21:30)
[2016-11-20] MEDS ORDERED: IBUPROFEN 600 MG TAB ONE (22:31)
[2016-11-20 23:45] VITALS: TEMP 96.8
[2016-11-21 00:36] LABS: ALBUMIN 1.7 g/dl (3.3-4.9); ALBUMIN/GLOBULIN RATIO 0.65; BILIRUBIN,INDIRECT 0.3 mg/dl (0-1.1); BILIRUBIN,TOTAL 0.3 mg/dl (0.2-1.3); CALCIUM 6.4 mg/dl (8.4-10.2); CREATININE 2.99 mg/dl (0.61-1.24); POTASSIUM 5.4 mmol/L (3.5-5.1); TOTAL PROTEIN 4.3 g/dl (6.1-8.1)
[2016-11-21 01:15] VITALS: BP 71/54; PULSE 66; RESP 20
[2016-11-21] MEDS ORDERED: DOPamine-D5W 1.6 MG/ML 250 ML ONE (01:20)
[2016-11-21 01:26] VITALS: RESP 20
[2016-11-21 01:30] VITALS: BP 41/28; PULSE 68; RESP 20
[2016-11-21] MEDS ORDERED: PHENYLephrine 160 MG in DEXTROSE 5% 484 ML IV SCH ×4 (01:30)
[2016-11-21] MEDS ORDERED: DOPamine-D5W 1.6 MG/ML 250 ML IV SCH (01:30)
[2016-11-21] MEDS ORDERED: VASOPRESSIN 60 UNIT in DEXTROSE 5% 57 ML IV SCH ×4 (01:30)
[2016-11-21] MEDS ORDERED: NORepinephrine 32 MG in DEXTROSE 5% 218 ML IV SCH ×4 (01:30)
[2016-11-21] MEDS ORDERED: EPINEPHrine 4 MG in DEXTROSE 5% 246 ML IV SCH ×4 (01:30)
[2016-11-21 01:45] VITALS: BP 62/13; PULSE 63; RESP 20
[2016-11-21 02:00] VITALS: BP 81/47; PULSE 0; RESP 20
[2016-11-21] MEDS ORDERED: ACCU-CHEK XX SCH (02:00)
[2016-11-21 02:15] VITALS: BP 0/0; PULSE 0; RESP 0
--- NOTE | 2016-11-21 02:50 | DES ---
Date/Time of Note Date/Time of Note DATE: 11/21/16 TIME: 02:44 Discharge/ Summary Admission/Discharge Info Admit Date/Time Nov 20, 2016 at 19:04pm Discharge Date/Time Final Diagnosis Cardiopulmonary Arrest acute pulmonary Embolism Ventilatory Dependant Respiratory Failure Cardiogenic shock Lactic Acidosis Acute Renale Failure Thrombus versus vegetation seen on echocardiogram Preliminary Cause of Cardiopulmonary arrest secondary to acute pulmonary Embolism Cardiogenic Shock Respiratory Failure Hx of Present Illness Patient is a 61-year-old male with a liver transplant who presents with altered mental status. Please note the history and physical exam is limited secondary to the patient's altered mental status at this time. The patient was brought in by ambulance. 30 minutes prior to arrival he was sitting at the table and became acutely altered per family. He did have a recent kidney procedure done 4 days ago. He has had a liver transplant at [facility] in the past. Hospital Course Patient is a 61-year-old male with a liver transplant who presents with altered mental status. Please note the history and physical exam is limited secondary to the patient's altered mental status at this time. The patient was brought in by ambulance. 30 minutes prior to arrival he was sitting at the table and became acutely altered per family. He did have a recent kidney procedure done 4 days ago. He has had a liver transplant at [facility] in the past. Upon speaking with the she states that the patient was recently at [facility] after having a stent placed in his kidney. Patient had gone home and he was in his usual state of health until about yesterday were he was noticed to be more tired and sleeping a lot more. Then today he was sitting and eating at the table when the all of a sudden noticed that he went unconscious against the chair. She tried to awaken him but he did not wake up. She then started CPR on him. She also was able to check a blood pressure at that time his blood pressure was normal according to the at around greater than 100 systolic. She continued CPR until the ambulance arrived which was approximately 20-30 minutes according to the . During her attempted CPR she did notice that he did have an episode where he was trying to wake up however after that he remained unconscious. CT of the chest in the ED revealed: Pulmonary embolism of the right pulmonary artery. Echocardiogram showed an ejection fraction of 15% and echogenic structure seen in the LAD and mitral valve, large in size going into the LVOT to AV. As well as some structure seen into the RA to the TV. Likely thrombus versus vegetation. Patient was intubated and central access was obtained. Patient was started on vasopressors. Patient was given Activase for a pulmonary embolism and he was then started on heparin drip. Serial labs were drawn. Lactic acid levels continue to rise at which point. Bicarb drip was initiated. Patient's pupils remained fixed and nonreactive. Patient's condition was explained to the daughter and the at the bedside. The decision was made that we will continue the current management, however the daughter and the decided that if he continued to deteriorate further that they would not want further aggressive measures such as chest compressions. The decision was made to continue the patient on his current management with pressor support and ventilatory support however his CODE STATUS was changed to DNR. Through the hospital course, patient's sedation was temporarily held to see if patient showed any responsiveness. Patient did not show any responsiveness or motor activity. He did not produce any urine output. Blood pressures were not adequate he was eventually started on the fifth pressor. Throughout this time it became became very difficult to maintain adequate oxygen saturations despite ventilatory support. His temperature began to decrease. His extremities were noted to be distally cold. Patient continued to deteriorate and declined further and and he was not able to maintain adequate blood pressures despite the use of 5 pressors and bicarb drip. Patient's rhythm went into asystole and unfortunately he was pronounced at approximately 2:04 AM. and daughter were present at the bedside. Please see pronouncement note for further details. Pending Labs/Cultures Laboratory Tests Test 11/20/16 11:40 11/20/16 14:30 11/20/16 17:00 11/20/16 19:02 White Blood Count 17.510^3/ul (4.8-10.8) 25.610^3/ul (4.8-10.8) Red Blood Count 3.9210^6/ul (4.70-6.10) 4.0810^6/ul (4.70-6.10) Hemoglobin 11.4g/dl (14.0-18.0) 12.4g/dl (14.0-18.0) Hematocrit 36.4% (42.0-52.0) 41.1% (42.0-52.0) Mean Corpuscular Volume 92.9fl (82.0-101.0) 100.7fl (82.0-101.0) Mean Corpuscular Hemoglobin 29.1pg (29.0-33.0) 30.4pg (29.0-33.0) Mean Corpuscular Hemoglobin Concent 31.3g/dl (32.0-37.0) 30.2g/dl (32.0-37.0) Red Cell Distribution Width 14.6% (11.5-14.5) 14.2% (11.5-14.5) Platelet Count 17389^3/UL (140-415) 83920^3/UL (140-415) Mean Platelet Volume 10.9fl (7.4-10.4) 10.0fl (7.4-10.4) Neutrophils % 54.3% (39.0-77.0) % (39.0-77.0) Lymphocytes % 33.0% (15.0-51.0) % (15.0-51.0) Monocytes % 6.9% (0.0-11.0) % (0.0-11.0) Eosinophils % 4.0% (0.0-7.0) % (0.0-7.0) Basophils % 0.5% (0.0-2.0) % (0.0-2.0) Nucleated Red Blood Cells % 0.0/100WBC (0.0-0.0) 0.1/100WBC (0.0-0.0) Neutrophils # 9.510^3/ul (1.6-7.5) 10^3/ul (1.6-7.5) Lymphocytes # 5.810^3/ul (0.8-2.9) 10^3/ul (0.8-2.9) Monocytes # 1.210^3/ul (0.3-0.9) 10^3/ul (0.3-0.9) Eosinophils # 0.710^3/ul (0.0-0.5) 10^3/ul (0.0-0.5) Basophils # 0.110^3/ul (0.0-0.1) 10^3/ul (0.0-0.1) Nucleated Red Blood Cells # 0.010^3/ul (0.0-0.0) 10^3/ul (0.0-0.0) Prothrombin Time 15.7Sec (12.2-14.2) Prothrombin Time Ratio 1.2 INR International Normalized Ratio 1.24 Activated Partial Thromboplast Time 29.4Sec (25.0-35.0) Sodium Level 142mmol/L (135-144) 145mmol/L (135-144) Potassium Level 3.8mmol/L (3.5-5.1) 4.7mmol/L (3.5-5.1) Chloride Level 117mmol/L (97-110) 119mmol/L (97-110) Carbon Dioxide Level 12mmol/L (21-31) 10mmol/L (21-31) Anion Gap 17 (8-16) 21 (8-16) Blood Urea Nitrogen 27mg/dl (7-20) 26mg/dl (7-20) Creatinine 2.53mg/dl (0.61-1.24) 2.97mg/dl (0.61-1.24) Glucose Level 254mg/dl (70-220) 164mg/dl (70-220) Lactic Acid Level 6.5mmol/L (0.5-2.0) 7.9mmol/L (0.5-2.0) 9.5mmol/L (0.5-2.0) Calcium Level 8.7mg/dl (8.4-10.2) 7.6mg/dl (8.4-10.2) Total Bilirubin 0.2mg/dl (0.2-1.3) 0.4mg/dl (0.2-1.3) Direct Bilirubin 0.00mg/dl (0.00-0.20) 0.00mg/dl (0.00-0.20) Indirect Bilirubin 0.2mg/dl (0-1.1) 0.4mg/dl (0-1.1) Aspartate Amino Transf (AST/SGOT) 20IU/L (15-46) 969IU/L (15-46) Alanine Aminotransferase (ALT/SGPT) 31IU/L (13-69) 408IU/L (13-69) Alkaline Phosphatase 82IU/L (42-121) 87IU/L (42-121) Ammonia 34umol/l (9-30) Troponin I 0.074ng/ml (0.00-0.12) 441.000ng/ml (0.00-0.12) Total Protein 6.6g/dl (6.1-8.1) 5.8g/dl (6.1-8.1) Albumin 3.2g/dl (3.3-4.9) 2.7g/dl (3.3-4.9) Globulin 3.40g/dl (1.3-3.2) 3.10g/dl (1.3-3.2) Albumin/Globulin Ratio 0.94 0.87 Segmented Neutrophils % (Manual) 65% (39-77) Lymphocytes % (Manual) 25% (15-51) Monocytes % (Manual) 8% (0-11) Eosinophils % (Manual) 1% (0-7) Basophils % (Manual) 1% (0-2) Absolute Lymphocytes (Manual) 6.410^3/ul (0.8-2.9) Absolute Monocytes (Manual) 2.010^3/ul (0.3-0.9) Basophils # (Manual) 0.210^3/ul (0.0-0.0) Platelet Estimate NORMAL Test 11/20/16 23:10 11/21/16 00:20 Sodium Level 141mmol/L (135-144) Potassium Level 5.4mmol/L (3.5-5.1) Chloride Level 120mmol/L (97-110) Carbon Dioxide Level 8mmol/L (21-31) Anion Gap 18 (8-16) Blood Urea Nitrogen 25mg/dl (7-20) Creatinine 2.99mg/dl (0.61-1.24) Glucose Level 182mg/dl (70-220) Calcium Level 6.4mg/dl (8.4-10.2) Total Bilirubin 0.3mg/dl (0.2-1.3) Direct Bilirubin 0.00mg/dl (0.00-0.20) Indirect Bilirubin 0.3mg/dl (0-1.1) Aspartate Amino Transf (AST/SGOT) 1892IU/L (15-46) Alanine Aminotransferase (ALT/SGPT) 646IU/L (13-69) Alkaline Phosphatase 61IU/L (42-121) Total Protein 4.3g/dl (6.1-8.1) Albumin 1.7g/dl (3.3-4.9) Globulin 2.60g/dl (1.3-3.2) Albumin/Globulin Ratio 0.65 Lactic Acid Level 11.6mmol/L (0.5-2.0) REG SHARMA Nov 21, 2016 02:50
--- NOTE | 2016-11-21 05:36 | EN ---
Date/Time of Note Date/Time of Note DATE: 11/21/16 TIME: 05:34 Event Note Medicine Medicine Event Note Pronouncement note Patient was seen and examined at the bedside. Patient was nonresponsive to verbal stimuli. Patient was unresponsive to vigorous sternal rub. Patient was not responsive to tactile stimuli. Pupils were fixed, dilated bilaterally, and nonreactive to light. There were no heart sounds present on auscultation. Telemetry monitoring showed asystole. Patient was pronounced approximately at 2 :04AM. Family was present at the bedside. Primary team is aware. REG SHARMA Nov 21, 2016 05:36
[2016-11-21] MEDS ORDERED: PANTOPRAZOLE 40 MG INJ IV SCH (06:00)
== END 2016-11-21 02:00 | disposition expired | DRG 208 ==
LOC: E/R 11:28 → ICU 11-21 00:45
PROVIDERS: ADMIT Internal Medicine; ATTEND Internal Medicine
PROC: 0BH17EZ Insertion of Endotracheal Airway into Trachea, Via Natural or Artificial Opening (ICD-10-PCS; principal; 2016-11-20)
PROC: 3E03317 Introduction of Other Thrombolytic into Peripheral Vein, Percutaneous Approach (ICD-10-PCS; 2016-11-20)
PROC: 06HM33Z Insertion of Infusion Device into Right Femoral Vein, Percutaneous Approach (ICD-10-PCS; 2016-11-20)
PROC: B54BZZA Ultrasonography of Right Lower Extremity Veins, Guidance (ICD-10-PCS; 2016-11-20)
PROC: 5A1935Z Respiratory Ventilation, Less than 24 Consecutive Hours (ICD-10-PCS; 2016-11-21)
DX: I26.99 Other pulmonary embolism without acute cor pulmonale (principal); J96.00 Acute respiratory failure, unspecified whether with hypoxia or hypercapnia; R57.0 Cardiogenic shock; G93.40 Encephalopathy, unspecified; N17.9 Acute kidney failure, unspecified; E87.2 Acidosis; Z94.4 Liver transplant status; I46.9 Cardiac arrest, cause unspecified; Z66 Do not resuscitate
CPT/HCPCS: 31500; 36415; 70450; 71010; 74177; 76937; 80053; 82140; 83605; 84484; 85025; 85610; 85730; 87040; 93005; 93306; 94002; 94003; 94770; 96365; 96366; 96375; J0171; J0692; J1170; J1265; J1644; J1720; J1815; J2370; J2997; J3370; J7030; J7060; J7070; J7999; Q9967